=== PATIENT | female | born 1945 | race Caucasian/White ===

== ENCOUNTER 2025-07-21 12:44 | Emergency (ER) | payer SELFPAY ==
[2025-07-21 12:57] LABS: BASOPHILS ABSOLUTE AUTO 0.1 K/mm3 (0.0-0.2); BASOPHILS PERCENT AUTO 0.3 % (0.0-1.0); EOSINOPHILS ABSOLUTE AUTO 0.7 K/mm3 (0.0-0.4); EOSINOPHILS PERCENT AUTO 3.5 % (0.0-6.0); IMMATURE GRAN ABSOLUTE AUTO 0.11 K/mm3 (0.00-0.05); IMMATURE GRAN PERCENT AUTO 0.6 % (0.0-0.4); LYMPHOCYTES ABSOLUTE AUTO 1.3 K/mm3 (1.0-4.8); LYMPHOCYTES PERCENT AUTO 6.6 % (24.0-44.0); MEAN PLATELET VOLUME 9.5 fl (9.4-12.3); MONOCYTES ABSOLUTE AUTO 0.9 K/mm3 (0.0-0.8); MONOCYTES PERCENT AUTO 4.4 % (0.0-8.0); NEUTROPHILS ABSOLUTE AUTO 16.6 K/mm3 (1.8-7.7); NEUTROPHILS PERCENT AUTO 84.6 % (41.0-71.0); NRBC ABSOLUTE 0.00 (0.00-0.02); NRBC PERCENT 0.0 % (0.0-0.2); PLATELET COUNT,PLT 271 K/mm3 (150-400); RED BLOOD CELL COUNT 4.82 M/mm3 (4.10-5.30); WHITE BLOOD CELL COUNT,WBC 19.57 K/mm3 (3.9-11.3)
[2025-07-21] MEDS: Iopamidol 755 Mg/ML 100 ML Bottle IVPUSH ONE (13:07)
[2025-07-21] MEDS ORDERED: propofoL 1,000 MG/100 ML 100 ML IV SCH (13:15)
[2025-07-21] MEDS: propofoL 1,000 MG/100 ML 100 ML IV SCH (13:28)
[2025-07-21] MEDS: Insulin Regular, Human 100 Units/ML 10 ML Vial IV STA (13:29)
[2025-07-21 13:32] LABS: A/G RATIO 0.6 (1-2); ALANINE AMINOTRANSFERASE,ALT 18.0 U/L (14-59); ASPARTATE AMNIOTRANSFERASE,AST 28.0 U/L (15-37); BILIRUBIN TOTAL 0.3 mg/dL (0.2-1.0); BLOOD UREA NITROGEN,BUN 20.0 mg/dL (7-18); CARBON DIOXIDE,CO2 30.0 mEq/L (21-32); CHLORIDE,CL 100.0 mEq/L (98-107); CREATINE KINASE,CK 79.0 U/L (26-192); CREATININE 1.7 mg/dL (0.55-1.02); EST CRCL DRUG DOSING (CG) 26.62 mL/min; ESTIMATED GFR 30.0 mL/min (>60); POTASSIUM,K 3.6 mEq/L (3.5-5.1); PROTEIN TOTAL,TP 7.7 g/dl (6.4-8.2); SODIUM,NA 140.0 mEq/L (136-145); TROPONIN I HIGH SENSITIVITY 36.0 pg/mL (<=51)
[2025-07-21 13:33] LABS: GLUCOSE RANDOM 423.0 mg/dL (70-99)
[2025-07-21] MEDS ORDERED: Heparin Sodium 5,000 Units/ML Vial IVPUSH ONE (13:40)
[2025-07-21] MEDS ORDERED: Heparin Sodium/D5W 250 ML IV SCH (13:45)
[2025-07-21] MEDS: Heparin Sodium 5,000 Units/ML Vial IVPUSH ONE (14:07)
[2025-07-21 14:08] LABS: BASE EXCESS ARTERIAL 0.5 (-2-2.0); BICARBONATE,ARTERIAL 24.6 meq/L (22.0-26.0); O2 SATURATION ARTERIAL 98.8 % (96.0-97.0); PCO2 ARTERIAL 37.0 mmHg (35.0-45.0); PO2 ARTERIAL 200.0 mmHg (80.0-100.0)
[2025-07-21] MEDS: Heparin Sodium/D5W 250 ML IV SCH (14:08)
[2025-07-21 14:09] LABS: PATIENT RESPIRATORY RATE 16.0 /MIN
[2025-07-21] MEDS: Labetalol 100 MG/20 ML MDV IVPUSH STA (14:17)
[2025-07-21 14:41] LABS: APPEARANCE,URINE CLEAR (Clear); GLUCOSE,URINE 3+ (Negative); OCCULT BLOOD,URINE 2+ (Negative)
[2025-07-21 15:07] LABS: EPITHELIAL CELLS,URINE 0-5 /hpf (0-5)
== END 2025-07-21 15:18 ==
LOC: JD.ED 12:44
DX: I21.3 ST elevation (STEMI) myocardial infarction of unspecified site (principal); E11.65 Type 2 diabetes mellitus with hyperglycemia; R41.82 Altered mental status, unspecified; S61.411A Laceration without foreign body of right hand, initial encounter; Z95.0 Presence of cardiac pacemaker; X58.XXXA Exposure to other specified factors, initial encounter
CPT/HCPCS: 36415; 36556; 36600; 51702; 70450; 70496; 70498; 71045; 80053; 81001; 82140; 82550; 82803; 82947; 83605; 83690; 83735; 83880; 84484; 85025; 86850; 86900; 86901; 87428; 93005; 96365; 96366; 96368; 96374; 96375; 99291; 99292; A9270; J1644; J1815; J1920; J2404; J2470; J2704; J3010; J7030; J7050; Q9967; 93010; 99285